=== PATIENT | male | born 1995 | race Caucasian/White ===

== ENCOUNTER 2021-03-19 01:46 | Emergency (ER) | payer BC, SELFPAY ==
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
[2021-03-20 17:17] VITALS: BP 152/99; TEMP 99.8; O2SAT 98
== END 2021-03-19 02:04 | disposition home or self-care (01) ==
LOC: ER 01:46
DX: S50.10XA Contusion of unspecified forearm, initial encounter (principal); X58.XXXA Exposure to other specified factors, initial encounter